=== PATIENT | female | born 1945 | race Two or more races ===

== ENCOUNTER 2020-09-17 11:30 | Inpatient (IN) | payer OTHER ==
[~2020-09-17] VITALS: Ht 162.6 cm; Wt 60.3 kg
[2020-09-18] MEDS ORDERED: LISINOPRIL5 MG PO (11:00)
[2020-09-18] MEDS ORDERED: METFORMIN HCL500 M3 PO (11:00)
[2020-09-24] MEDS ORDERED: ALENDRONATE SOD70 MG (14:56)
[2020-09-24] MEDS ORDERED: ATORVASTATIN CA10 MG (14:56)
[2020-09-26] MEDS ORDERED: PERCOCET 5-3251 EACH PO (12:55)
== END 2020-09-26 13:46 | disposition home or self-care (01) | DRG 331 ==
LOC: SURH 09-24 07:00 → O/R 09-24 09:00 → SURH 09-24 11:30 → SURG 09-24 22:24
PROVIDERS: ADMIT Surgery; ATTEND Surgery
PROC: 0DTP4ZZ Resection of Rectum, Percutaneous Endoscopic Approach (ICD-10-PCS; 2020-09-24)
PROC: 07BC4ZX Excision of Pelvis Lymphatic, Percutaneous Endoscopic Approach, Diagnostic (ICD-10-PCS; 2020-09-24)
PROC: 0DBN4ZZ Excision of Sigmoid Colon, Percutaneous Endoscopic Approach (ICD-10-PCS; principal; 2020-09-24 07:00)
DX: C19 Malignant neoplasm of rectosigmoid junction (principal); R59.0 Localized enlarged lymph nodes; I10 Essential (primary) hypertension; Z20.822 Contact with and (suspected) exposure to COVID-19; E11.9 Type 2 diabetes mellitus without complications; Z79.4 Long term (current) use of insulin